=== PATIENT | male | born 1985 | race American Indian/Alaskan Native ===

== ENCOUNTER 2016-09-10 10:44 | Emergency (ER) | payer SELFPAY ==
[2016-09-10 11:06] LABS: Hematocrit 42.7 % (35.5-45.6); Hemoglobin 13.5 gm/dl (11.8-15.2); Mean Corpuscular HGB Conc 32 % (32-34); Platelet Count 233 K/mm3 (140-440); Red Blood Count 6.17 M/mm3 (3.65-5.03); Red Cell Distribution Width 16.7 % (13.2-15.2); White Blood Count 12.6 K/mm3 (4.5-11.0)
[2016-09-10 11:09] LABS: Mean Corpuscular Hemoglobin 22 pg (28-32); Mean Corpuscular Volume 69 fl (84-94)
[2016-09-10 11:23] LABS: Alanine Aminotransferase 68 units/L (7-56); Albumin 4.5 g/dL (3.9-5); Albumin/Globulin Ratio 1.5 %; Alkaline Phosphatase 63 units/L (35-129); Anion Gap 18 mmol/L; Blood Urea Nitrogen 12 mg/dL (9-20); Calcium 9.4 mg/dL (8.4-10.2); Carbon Dioxide 26 mmol/L (22-30); Chloride 101.3 mmol/L (98-107); Glucose 123 mg/dL (75-100); Lipase 17 units/L (13-60); Potassium 3.7 mmol/L (3.6-5.0); Sodium 142 mmol/L (137-145); Total Protein 7.6 g/dL (6.3-8.2)
[2016-09-10 12:07] LABS: Bilirubin,Urine NEG (Negative); Blood,Urine NEG (Negative); Ketones,Urine TR mg/dL (Negative); Leukocyte Esterase,Urine NEG (Negative); Mucus,Urine FEW /HPF; Nitrite,Urine NEG (Negative); WBC,Urine < 1.0 /HPF (0.0-6.0)
[2016-09-10 12:57] LABS: Basophils % (Manual) 0 % (0.0-1.8); Blastocytes % (Manual) 0 %; Eosinophils % (Manual) 0 % (0.0-4.3)
[2016-09-10 12:58] LABS: Diff Status Complete; Hypochromasia 1+; Microcytosis 1+
[2016-09-10] MEDS ORDERED: MORPHINE IV ONE (21:27)
[2016-09-10] MEDS ORDERED: NACL 0.9% 1000 ML 1,000 ML IV ONE (21:27)
[2016-09-10] MEDS ORDERED: ZOFRAN IV ONE (21:27)
[2016-09-10 21:58] VITALS: BP 121/90
[2016-09-10] MEDS ORDERED: SUBLIMAZE IV ONE (22:39)
--- NOTE | 2016-09-10 22:45 | Emergency Department Report ---
HPI - General Chief Complaint: Abdominal Pain Time Seen by Provider: 09/10/16 21:25 - HPI HPI: The patient is a 31-year-old male presents for evaluation of abdominal pain. The patient reports epigastric abdominal pain for the past one day, sharp in quality, 7/10 in severity, exacerbated with retching, and associated with nausea and multiple episodes of nonbloody emesis. The patient denies fever, chills, night sweats, diarrhea, blood in the stool, dark tarry stool, dysuria, hematuria, flank pain, genital discharge, inability to pass flatus. ED Past Medical Hx - Past Medical History Previous Medical History?: No Hx Seizures: Yes (when he was 10 yrs old,not on meds over 10 years) - Surgical History Past Surgical History?: Yes Additional Surgical History: rt ankle surgery,rt thigh,both hips surgery , 2008 - Social History Smoking Status: Current Every Day Smoker Substance Use Type: Alcohol, Marijuana - Medications Home Medications: Home Medications Medication Instructions Recorded Confirmed Last Taken Type HYDROcodone/APAP 5-325 [Idalou 1 each PO Q6HR PRN #12 tablet 09/10/16 Unknown Rx 5/325] Ondansetron [Zofran TAB] 4 mg PO Q8HR PRN #20 tablet 09/10/16 Unknown Rx ED Review of Systems ROS: Stated complaint: NAUSEA/VOMITING Other details as noted in HPI Constitutional: denies: fever ENT: denies: throat or neck pain Respiratory: denies: cough, shortness of breath Cardiovascular: denies: chest pain Endocrine: denies unexplained weight loss or gain Gastrointestinal: reports abdominal pain, nausea Genitourinary: denies: dysuria Musculoskeletal: denies: leg swelling Skin: denies: rash Neurological: denies: headache Hematological/Lymphatic: denies: easy bleeding or easy bruising Psych: denies sadness or hopelessness Physical Exam - Physical Exam Vital Signs: Vital Signs 09/10/16 09/10/16 10:48 21:57 Temperature 97.4 F L Pulse Rate 86 80 Respiratory 16 18 Rate Blood Pressure 131/76 Blood Pressure 121/90 [Left] O2 Sat by Pulse 97 100 Oximetry Physical Exam: General: well-nourished, well-developed, no acute distress Head: Normocephalic, atraumatic Eyes: normal sclera ENT: Mucous membranes are pale and dry Neck: trachea midline, neck supple, No neck stiffness, no cervical adenopathy Respiratory: Breath sounds equal bilaterally, no wheezing, rales, or rhonchi Cardio: S1 and S2 present, no murmurs, rubs, gallops, capillary refill is delayed Abdomen: Normoactive bowel sounds, soft abdomen, no rigidity, no guarding or rebound tenderness Musc: No pitting edema Skin: No rash Neuro: no facial drooping, normal speech Psych: Normal affect ED Course Vital Signs 09/10/16 09/10/16 10:48 21:57 Temperature 97.4 F L Pulse Rate 86 80 Respiratory 16 18 Rate Blood Pressure 131/76 Blood Pressure 121/90 [Left] O2 Sat by Pulse 97 100 Oximetry ED Medical Decision Making - Lab Data Result diagrams: 09/10/16 10:54 09/10/16 10:54 - Medical Decision Making The patient was seen and examined by myself. The patient is placed on a rn supplemental and continuous pulse ox. On initial evaluation, the patient was found to be in no distress. Evaluation orders are placed. IV access is established and the patient is given 1 L normal saline fluid bolus for treatment of dehydration, and Zofran for nausea, and IV fentanyl for pain. Lab results were non-concerning including electrolytes, renal function, LFTs, lipase , and urinalysis. The patient was reevaluated and reported that their symptoms were markedly improved. The patient is stable for discharge with outpatient follow-up. The patient is given follow-up and return instructions. The patient expressed understanding and agreed with the plan. The patient is discharged in stable condition. Critical care attestation.: If time is entered above; I have spent that time in minutes in the direct care of this critically ill patient, excluding procedure time. ED Disposition Clinical Impression: Nausea and vomiting in adult, Dehydration, Acute generalized abdominal pain, Acute bilateral low back pain without sciatica Disposition: DISCHARGED TO HOME OR SELFCARE Is pt being admited?: No Does the pt Need Aspirin: No Condition: Stable Instructions: Dehydration (ED), Acute Nausea and Vomiting (ED), Acute Abdominal Pain (ED) Prescriptions: HYDROcodone/APAP 5-325 [[place] 5/325] 1 each PO Q6HR PRN #12 tablet PRN Reason: Pain Ondansetron [Zofran TAB] 4 mg PO Q8HR PRN #20 tablet PRN Reason: Nausea Referrals: PRIMARY CARE, [Primary Care Provider] - 3-5 Days Time of Disposition: 22:39
== END 2016-09-10 23:38 | disposition home or self-care (01) ==
LOC: ED 10:44
DX: R11.2 Nausea with vomiting, unspecified (principal); R10.84 Generalized abdominal pain; M54.5 Low back pain; E86.0 Dehydration; R56.9 Unspecified convulsions; F17.200 Nicotine dependence, unspecified, uncomplicated; F12.10 Cannabis abuse, uncomplicated
CPT/HCPCS: 36415; 80053; 81001; 83690; 85007; 85025; 96361; 96374; 96375; 99284; J2405; J3010; J7030; J2270